=== PATIENT | female | born 1950 | race Caucasian/White ===

== ENCOUNTER 2020-06-04 11:27 | Outpatient (CLI) | payer OTHER ==
[~2020-06-04 11:27] MED LIST: KEFLEX500 MG PO; ULTRACET PO
== END 2020-06-04 12:35 | disposition home or self-care (01) ==
LOC: NUCLEAR 11:27
PROVIDERS: ATTEND General Practice
DX: I87.2 Venous insufficiency (chronic) (peripheral) (principal); I73.9 Peripheral vascular disease, unspecified; L97.812 Non-pressure chronic ulcer of other part of right lower leg with fat layer exposed

== ENCOUNTER 2020-06-05 07:45 | Outpatient (CLI) | payer OTHER | END 2020-06-05 07:52 | disposition home or self-care (01) | LOC: NUCLEAR 07:45 | DX: I87.2 Venous insufficiency (chronic) (peripheral) (principal); L97.812 Non-pressure chronic ulcer of other part of right lower leg with fat layer exposed ==

== ENCOUNTER 2021-05-12 17:16 | Emergency (ER) | payer OTHER ==
[~2021-05-12] VITALS: Ht 160 cm; Wt 102.1 kg
[2021-05-12] MEDS ORDERED: MEDI-MECLIZINE25 MG PO (22:14)
== END 2021-05-12 22:27 | disposition home or self-care (01) ==
LOC: ER 17:16
DX: R42 Dizziness and giddiness (principal)

== ENCOUNTER 2022-05-18 09:37 | Outpatient (CLI) | payer OTHER ==
[~2022-05-18 09:37] MED LIST changes: +MEDI-MECLIZINE25 MG PO
== END 2022-05-18 09:38 | disposition home or self-care (01) ==
LOC: NUCLEAR 09:37
DX: I73.9 Peripheral vascular disease, unspecified (principal)

== ENCOUNTER 2022-05-19 09:51 | Outpatient (CLI) | payer OTHER | END 2022-05-19 09:52 | disposition home or self-care (01) | LOC: NUCLEAR 09:51 | DX: I87.2 Venous insufficiency (chronic) (peripheral) (principal) ==